=== PATIENT | male | born 1980 | race Caucasian/White ===

== ENCOUNTER 2021-05-06 08:50 | Emergency (ER) | payer OTHER ==
[~2021-05-06 08:50] MED LIST: FLOMAX 0.4 MG0.4 MG PO; NORCO 7.5-3251 EACH PO
[2021-05-06] MEDS ORDERED: NAPROXEN500 MG PO (12:09)
== END 2021-05-06 12:55 | disposition home or self-care (01) ==
LOC: FER 08:50
DX: M77.11 Lateral epicondylitis, right elbow (principal)
CPT/HCPCS: 99283

== ENCOUNTER 2021-10-14 21:24 | Emergency (ER) | payer OTHER ==
[~2021-10-14 21:24] MED LIST changes: +NAPROXEN500 MG PO
[2021-10-14 21:50] LABS: BASOPHIL 0.5 % (0-2); EOSINOPHIL 1.2 % (0-5); HCT 47.8 % (42.0-52.0); HGB 15.7 g/dl (13.2-18.0); LYMPHOCYTE 19.4 % (15-48); MCH 29.5 pg (25.0-31.0); MCHC 32.8 g/dL (32.0-36.0); MCV 89.7 fL (78.0-100.0); MONOCYTE 6.6 % (0-12); MPV 9.7 fL (6.0-9.5); NEUTROPHIL 71.9 % (41-80); NRBC 0; PLT 277 K/uL (150-400); RBC 5.33 M/uL (4.70-6.00); RDW 11.6 % (11.5-14.0)
[2021-10-14 22:07] LABS: ALBUMIN 4.3 g/dL (3.4-5.0); BILIRUBIN - TOTAL 0.4 mg/dL (0.2-1.0); BUN/CREAT RATIO (CALC) 10.9 RATIO; CREATININE 1.01 mg/dL (0.67-1.17); GLOBULIN (CALCULATION) 3.7 g/dL; POTASSIUM 3.9 mmol/L (3.5-5.1)
== END 2021-10-15 04:27 | disposition home or self-care (01) ==
LOC: FER 21:24
PROVIDERS: Internal Medicine
DX: R07.89 Other chest pain (principal)
CPT/HCPCS: 36415; 71045; 80053; 84484; 85025; 93005; J2930